=== PATIENT | male | born 1980 | race Hispanic/Latino ===

== ENCOUNTER 2020-02-19 19:08 | Emergency (ER) | payer SELFPAY ==
[2020-02-19] MEDS ORDERED: LIDOCAINE HCL-MPF 1% 2ML VIAL ONE (19:18)
[2020-02-19] MEDS ORDERED: CEFTRIAXONE SODIUM 1 GM ONE (19:18)
[2020-02-19] MEDS ORDERED: ACETAMINOPHEN-CODEINE 300/30MG TAB ONE (19:19)
== END 2020-02-19 19:36 | disposition home or self-care (01) ==
LOC: EDH 19:08
DX: H65.02 Acute serous otitis media, left ear (principal); Z72.0 Tobacco use
CPT/HCPCS: 82948; 96372; 99283; J0696; J3490